=== PATIENT | male | born 1990 | race Two or more races ===

== ENCOUNTER 2017-09-13 05:47 | Emergency (ER) | payer SELFPAY ==
[2017-09-13 05:59] VITALS: BP 153/98; PULSE 118; RESP 16; TEMP 99.3; O2SAT 98
--- NOTE | 2017-09-13 06:42 | ED PDOC ---
HPI: General Adult Time Seen by Provider: 09/13/17 06:06 Chief Complaint (Nursing): Medical Clearance Chief Complaint (Provider): Medical Clearance History Per: Patient History/Exam Limitations: no limitations Additional Complaint(s): 27 years old male brought to the ED by [facility]. Patient was awake, alert, steady gait oriented x 3 and fluent speech on arrival. He declines any medical treatment. PMD: non provided Past Medical History Reviewed: Historical Data, Nursing Documentation, Vital Signs Vital Signs: Last Vital Signs Temp 99.3 F 09/13/17 05:56 Pulse 118 H 09/13/17 05:56 Resp 16 09/13/17 05:56 BP 153/98 H 09/13/17 05:56 Pulse Ox 98 09/14/17 04:12 - Medical History PMH: No Chronic Diseases - Surgical History Surgical History: No Surg Hx - Family History Family History: States: Unknown Family Hx - Social History Current smoker - smoking cessation education provided: Yes Alcohol: Social Drugs: Denies - Allergies Allergies/Adverse Reactions: Allergies Allergy/AdvReac Type Severity Reaction Status Date / Time No Known Allergies Allergy Verified 09/13/17 06:07 Review of Systems Review Of Systems: ROS cannot be obtained secondary to pt's inabilty to answer questions. Physical Exam - Physical Exam Comments: Patient refused physical exam. - ECG O2 Sat by Pulse Oximetry: 98 (RA) Pulse Ox Interpretation: Normal Medical Decision Making Medical Decision Making: Time: 605 Patient is allowed to leave the ED. Initial Impression: Alcohol use. Scribe Attestation: Documented by Padma Wray, acting as a scribe for Singh Santos MD. Provider Scribe Attestation: All medical record entries made by the Scribe were at my direction and personally dictated by me. I have reviewed the chart and agree that the record accurately reflects my personal performance of the history, physical exam, medical decision making, and the department course for this patient. I have also personally directed, reviewed, and agree with the discharge instructions and disposition. Disposition - Clinical Impression Clinical Impression: Alcohol use - Patient ED Disposition Is Patient to be Admitted: No - Disposition Disposition: Routine/Home Disposition Time: 06:06 Condition: STABLE Instructions: General (DC) Forms: [employer] ([place])
== END 2017-09-13 06:26 | disposition home or self-care (01) ==
LOC: H.ER 05:47
DX: F10.129 Alcohol abuse with intoxication, unspecified (principal); F17.200 Nicotine dependence, unspecified, uncomplicated